=== PATIENT | female | born 1980 | race Caucasian/White ===

== ENCOUNTER 2017-08-25 11:11 | Emergency (ER) | payer OTHER ==
[~2017-08-25] VITALS: Ht 165.1 cm; Wt 147.7 kg
[2017-08-25 12:07] LABS: HEMATOCRIT 36.5 % (36.0-46.0); HEMOGLOBIN 12.2 G/DL (11.9-15.5); MCHC 33.4 G/DL (30.0-36.0); MCV 89.7 FL (83-99); PLATELET COUNT 177 K/uL (156-360); RBC DIS.WIDTH-CV 13.3 % (11.8-14.6); RBC DIS.WIDTH-SD 43.3 % (39-53); RED BLOOD COUNT 4.07 M/uL (3.80-5.20); WHITE BLOOD COUNT 5.8 K/uL (4.1-10.2)
[2017-08-25 12:25] LABS: CHLORIDE 105 mEq/L (99-109)
[2017-08-25 12:26] LABS: POTASSIUM 4.2 mEq/L (3.7-5.4); SODIUM 139 mEq/L (136-147)
[2017-08-25 12:27] LABS: GLUCOSE 89 mg/dL (70-99)
[2017-08-25 12:31] LABS: CREATININE 0.7 mg/dL (0.6-1.3)
[2017-08-25 12:32] LABS: UREA NITROGEN (BUN) 7 mg/dL (9-23)
[2017-08-25 12:35] LABS: GFR ESTIMATE (CALCULATED) > 59 mL/min/; TROP-I INTERPRETATION NEGATIVE; TROPONIN-I < 0.01 ng/mL (0.0-0.30)
[2017-08-25 14:07] LABS: D-DIMER ELISA < 150.00 ng/mLDDU (<230)
[2017-08-25 14:20] LABS: TROP-I INTERPRETATION NEGATIVE; TROPONIN-I < 0.01 ng/mL (0.0-0.30)
[2017-08-25] MEDS ORDERED: MEDROL DOSEPAK4 MG PO (15:01)
[2017-08-25 15:44] VITALS: BP 134/95
== END 2017-08-25 16:58 | disposition home or self-care (01) ==
LOC: EME 11:11
PROVIDERS: Emergency Medicine
DX: R07.9 Chest pain, unspecified (principal); T80.92XA Unspecified transfusion reaction, initial encounter; Y84.8 Other medical procedures as the cause of abnormal reaction of the patient, or of later complication, without mention of misadventure at the time of the procedure; R94.31 Abnormal electrocardiogram [ECG] [EKG]; J45.909 Unspecified asthma, uncomplicated; E66.01 Morbid (severe) obesity due to excess calories; Z90.49 Acquired absence of other specified parts of digestive tract
CPT/HCPCS: 71046; 80048; 84484; 85027; 85379; 93005; 99281; 99284